=== PATIENT | male | born 1955 | race Two or more races ===

== ENCOUNTER 2024-05-08 09:28 | Emergency (ER) | payer OTHER, SELFPAY ==
[2024-05-08 09:31] VITALS: BP 140/86
--- NOTE | 2024-05-08 10:12 | ED.GENMED ---
History of Present Illness
General
Chief Complaint: Fall
Source: patient
Time Seen by Provider: 05/08/24 09:56
History of Present Illness
History of Present Illness:
69yo right hand dominant male with a history of hypertension and hyperlipidemia presenting for evaluation after a fall around 8am this morning. He was walking down the steps when he lost his footing and fell down about 7-8 steps. He struck the R
side of his face on the chair lift. He also hit his R shoulder and R hip. He denies any loss of consciousness and was able to get up after the fall. He is presenting with a R periorbital hematoma. He denies any neck pain, back pain, chest pain,
abdominal pain, shortness of breath, eye pain, visual disturbance. Unknown last Tdap. He is not taking any blood thinners.
Phy Exam
General Physical Exam
General Presentation: well appearing and no apparent distress
General age: appears stated age
General Skin: warm and dry
General Habitus: normal
General Mental: alert
ENT Exam
ENT Exam: other (+Hematoma noted to R zygomatic/periorbital area with associated tenderness. )
Additional ENT: No cervical spine tenderness with full ROM
Eye Exam
Eye Exam: PERRL and EOMI
Pulmonary Exam
Pulmonary Exam: lungs clear, no respiratory distress, no crackles and no wheezing
Gastrointestinal Exam
Gastrointestinal Exam: non tender, soft and non distended
Musculoskeletal Exam
Musculoskeletal Exam: other (Mild tenderness to R shoulder with anterior tenderness. No deformity. ROM decreased although patient has a known rotator cuff injury to the shoulder. No tenderness to R hip joint and ROM is normal. )
Skin Exam
Skin Exam: normal color, warm/dry and other (Abrasions noted to R hip.)
Psychiatric Exam
Psychiatric Exam: normal mood/affect
Course
Orders/Labs/Results
Orders:
Orders
05/08/24 10:09
CT Facial Bones W/o Iv Contras Urgent
Comment:
Reason For Exam: R facial injury/hematoma
CT Head W/o Iv Contrast Urgent
Comment:
Reason For Exam: Fall, head injury
Tetanus/Diphth/Acelpertussis [Adacel] 0.5 ml IM .ONCE ONE
CR Shoulder - Right Min 2 View Urgent
Comment:
Reason For Exam: fall, injury
Vital Signs
Initial and Last Documented VS:
Initial Vital Signs
Temp Pulse Resp BP Pulse Ox
99.0 F 79 18 140/86 94
05/08/24 09:31 05/08/24 09:31 05/08/24 09:31 05/08/24 09:31 05/08/24 09:31
Last Documented Vital Signs
Temp Pulse Resp BP Pulse Ox
98.8 F 77 18 140/77 99
05/08/24 12:00 05/08/24 12:00 05/08/24 12:00 05/08/24 12:00 05/08/24 12:00
MDM/Problems Addressed
Differential Diagnosis Includes:
69yoM here after a fall on the steps. Hit face against chair lift. No LOC. No blood thinners. VSS. He is awake, alert, with a GCS of 15. There is facial hematoma over the R zygomatic/periorbital region. Abrasions also noted to R hip but ROM of hip
is normal and he is weight bearing without issue. Differential diagnosis includes but is not limited to: hematoma, facial fracture, intracranial hemorrhage
Initial ED plan: Check CT head, CT facial bones, and R shoulder x-rays. Update Tdap. Cervical spine cleared via [facility] criteria.
*Critical Care Note
Total Time (30-74mins, 75-104mins- exclusive of procedures): Not Applicable
Update Note
Update Note:
Imaging is negative for traumatic injuries other than facial hematoma. Supportive care discussed. Advised f/u with PCP and ED return precautions discussed. He expressed understanding and was discharged in stable condition.
ED Attending Note
-
Portions of this chart may have been created with voice recognition software.� Occasional wrong word or��sound alike� substitutions may have occurred due to the inherent limitations of voice recognition software.
Discharge Plan
Departure
Patient Disposition: Home (Routine Discharge)
Date of Disposition: 05/08/24
Time of Disposition: 12:19
Patient with high blood pressure during this ER visit?: Yes
Discharge Problem:
Fall down steps, Traumatic hematoma of face
Instructions: Hematoma
Referrals:
Jabari Zee DO [Family Provider] -
Activity Restrictions/Additional Instructions:
Apply ice to affected area. Take Tylenol as needed for pain.
Please follow-up with your family doctor. Return to the ER with any new or worsening symptoms.
Interventions
Interventions:
*Risk Screen - Suicide Last Done: 05/08/24 09:31
*General Assessment Last Done: 05/08/24 09:31
*Neglect/Abuse Screening Last Done: 05/08/24 09:31
ED- Fall Risk Assessment Last Done: 05/08/24 12:31
*ED COVID-19 Vaccine History Last Done: 05/08/24 09:31
*Nursing Disposition Last Done: 05/08/24 12:31
ED-Musculoskeletal Assessment Last Done: 05/08/24 09:51
ED- Neurological Assessment Last Done: 05/08/24 09:51
ED-Skin Assessment Last Done: 05/08/24 09:51
Discharge Date and Time
Discharge Date/Time: 05/08/24 12:31
Print Language: AUSTR[place]
[2024-05-08 12:00] VITALS: BP 140/77
[2024-05-08] MEDS: ADACEL 0.5 ML IM (12:25)
== END 2024-05-08 12:31 | disposition home or self-care (01) ==
LOC: EMR 09:28
PROVIDERS: EMERGENCY PHYSICIAN Emergency Medicine; FAMILY PHYSICIAN Internal Medicine
DX: S00.83XA Contusion of other part of head, initial encounter (principal); W10.9XXA Fall (on) (from) unspecified stairs and steps, initial encounter; Y93.01 Activity, walking, marching and hiking; Z23 Encounter for immunization; E78.00 Pure hypercholesterolemia, unspecified; I10 Essential (primary) hypertension
CPT/HCPCS: 99284; 90471; 70450; 70486; 73030; 90715

== ENCOUNTER → 2024-05-10 11:08 | Outpatient (REF) | payer OTHER, SELFPAY | LOC: MRI 3T 11:08 | PROVIDERS: ATTENDING PHYSICIAN Family Medicine Sports Medicine; FAMILY PHYSICIAN Internal Medicine | DX: S46.011A Strain of muscle(s) and tendon(s) of the rotator cuff of right shoulder, initial encounter (principal) | CPT/HCPCS: 73221 ==